=== PATIENT | female | born 1970 | race Caucasian/White ===

== ENCOUNTER 2023-02-02 06:49 | Emergency (ER) | payer BC ==
[~2023-02-02] VITALS: Ht 175.3 cm; Wt 83.9 kg
[2023-02-02 07:16] LABS: Source, Urine Clean Catch
[2023-02-02 07:21] LABS: Appearance, Urine Cloudy (Clear); Blood, Urine 2+ (Neg); Glucose Qualitative, Urine Neg (Neg); Ketones, Urine Neg (Neg); Leukocyte Esterase, Urine 3+ (Neg); Nitrite, Urine Pos (Neg); Protein, Urine 2+ (Neg); Specific Gravity, Urine 1.025 (1.003-1.022); Urobilinogen, Urine 2+ (Normal)
[2023-02-02 07:27] VITALS: BP 109/75
[2023-02-02] MEDS ORDERED: SERT100 PO (07:31)
[2023-02-02 07:55] LABS: Color, Urine Orange (P-Yellow)
[2023-02-02 07:57] LABS: Bilirubin, Urine 2+ (Neg)
[2023-02-02 07:59] LABS: Bacteria Few /hpf; Red Blood Cells, Urine 0-2 /hpf (0-2); Squamous Epithelial Cells Mod /hpf (Few); White Blood Cells, Urine TNTC /hpf (0-5)
[2023-02-02] MEDS ORDERED: CEFU250T47 PO ×2 (08:13→14:27)
[2023-02-02] MEDS ORDERED: Diflucan150 MG PO ×2 (08:16→14:27)
== END 2023-02-02 08:22 | disposition home or self-care (01) ==
LOC: ER 06:49
PROVIDERS: Student in an Organized Health Care Education/Training Program
DX: N39.0 Urinary tract infection, site not specified (principal); Z88.2 Allergy status to sulfonamides; Z88.8 Allergy status to other drugs, medicaments and biological substances; Z79.899 Other long term (current) drug therapy
CPT/HCPCS: 81001; 87077; 87086; 87186; 99283; A9270